=== PATIENT | female | born 1955 | race Caucasian/White ===

== ENCOUNTER 2019-02-01 11:50 | Inpatient (IN) | payer OTHER, SELFPAY ==
[2019-02-01 11:53] VITALS: BP 160/88; PULSE 62; RESP 18; TEMP 36.2; O2SAT 100
--- NOTE | 2019-02-01 12:06 | PC.NURSE ---
episode of headache resolved, aphasia resolved, tounge numbness resolved, now with right facial numbness, fast neuro exam negative. emotional with tears, skin warm dry pink, moving all ext.
--- NOTE | 2019-02-01 12:08 | DI.CT.S_ITS ---
PROCEDURE: CT HEAD/BRAIN WO CON INDICATIONS: Code stroke. Possible TPA TECHNIQUE: Noncontrast 4.5 mm thick angled axial sections acquired from the foramen magnum to the vertex, with coronal and sagittal reformats. For radiation dose reduction, the following was used: automated exposure control, adjustment of mA and/or kV according to patient size. COMPARISON: None. FINDINGS: Image quality: Excellent. CSF spaces: Basal cisterns are patent. No extra-axial fluid collections. The ventricles are symmetric in size and shape. Brain: Sub-5 mm areas of ill-defined hyperdensity present in the right frontal lobe, possibly sulcal although cannot exclude intraparenchymal. There is cerebral volume loss for age, with resultant ventricular and sulcal prominence. There are periventricular and deep white matter chronic small vessel ischemic changes. There is intracranial internal carotid artery atherosclerosis. Skull and face: Calvarium and visualized facial bones appear intact, without suspicious lesions. Sinuses: Visualized sinuses and mastoids are clear. IMPRESSION: Age-indeterminate sub-5 mm hyperdensities along the right frontal lobe potentially within sulcus versus intraparenchymal. Technically cannot exclude acute blood in the absence of prior studies. Elsewhere, no additional acute findings. Findings were personally telephoned and discussed in detail with Dr. Whalen in the emergency department at 1220 hours 02/01/19. Dictated by: Ralf Uribe M.D. on 02/01/2019 at 12:13 Approved by: Ralf Uribe M.D. on 02/01/2019 at 12:21
[2019-02-01 12:14] LABS: Add Manual Diff / Slide Review NO; Basophils Absolute Auto 100 /uL (0-100); Eosinophils Absolute Auto 100 /uL (0-450); Eosinophils Percent Auto 2.6 % (2-4); Hematocrit 37.6 % (36-46); Lymphocytes Absolute Auto 1900 /uL (1100-4500); Lymphocytes Percent Auto 35.1 % (25-40); Mean Corpuscular HGB Conc 34.4 % (30-36); Mean Corpuscular Hemoglobin 31.4 PG (26-34); Mean Corpuscular Volume 91.2 fL (80-100); Monocytes Absolute Auto 400 /uL (0-900); Monocytes Percent Auto 7.5 % (3-14); Neutrophils Absolute Auto 2900 /uL (1500-7000); Neutrophils Percent Auto 53.8 % (50-75); Platelet Count 240 X10^3/uL (150-400); Red Blood Cell Count 4.12 X10^6/uL (4.0-5.2); Red Cell Distribution Width 13.1 % (11.6-14.8); White Blood Cell Count 5.4 X10^3/uL (4.5-11.0)
[2019-02-01 12:21] LABS: Prothrombin Time 11.1 SECONDS (10.1-12.7)
[2019-02-01 12:23] LABS: PTT Partial Thromboplastin Tim 33 SECONDS (26.4-36.2)
--- NOTE | 2019-02-01 12:24 | ED_ITS ---
HPI - Neuro Symptoms/Deficit General Chief Complaint: Neuro Symptoms/Deficit Stated Complaint: thinks she is having stroke Time Seen by Provider: 02/01/19 11:58 Source: patient Mode of arrival: Ambulatory Limitations: no limitations History of Present Illness HPI Narrative: Patient is a 63-year-old female. Is on aspirin for treatment of paroxysmal atrial fibrillation. Here for evaluation which she thinks is pote ntially a stroke. She states that approximately 7:50 this morning she had a sudden onset of an episode where she states that she had problems speaking. She states that she knew that she was having problems speaking. Unsure exactly how long it lasted but she did not think it was a extended period of time. Then transitioned into her slurring her words. 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 She thought that she potentially could be having a stroke/TIA however took a shower prior to coming to her doctor's office who then told her to come to the emergency department. In this time she states that all of her speech issues have resolved. She states that EN route here to the emergency department she thought that she had numbness on the left side of her tongue. She states that has since resolved. She now states she is having some slight numbness to the right side of her face. Also woke up with a headache this morning. No trauma. Related Data Home Medications Medication Instructions Recorded Confirmed alprazolam 0.25 - 0.5 mg PO Q6H PRN 02/01/19 02/01/19 losartan 50 mg PO BID 02/01/19 02/01/19 magnesium oxide 500 mg PO QPM 02/01/19 02/01/19 metoprolol succinate 25 mg PO BID 02/01/19 02/01/19 omega-3 fatty acids-fish oil [Fish 1 cap PO DAILY 02/01/19 02/01/19 Oil] Allergies Allergy/AdvReac Type Severity Reaction Status Date / Time Sulfa (Sulfonamide Allergy Unknown Verified 02/01/19 15:08 Antibiotics) [SULFA (SULFONAMIDE ANTIBIOTICS)] Review of Systems Constitutional Constitutional: Denies fatigue, Denies fever(s) and Reports headache(s) Eyes Eyes: Denies blurry vision and Denies change in vision ENT Ears, Nose, Mouth, and Throat: Denies dizziness and Reports headache(s) Comments: Problem speaking Cardiovascular Cardiovascular: Denies chest pain, Denies palpitations and Denies dyspnea Respiratory Respiratory: Denies dyspnea Gastrointestinal Gastrointestinal: Denies abdominal pain, Denies nausea and Denies vomiting Genitourinary Genitourinary: Denies dysuria and Denies vaginal discharge Musculoskeletal Musculoskeletal: Denies myalgias and Denies arthralgias Integumentary/Breasts Skin/Breast: Denies lesions and Denies rash Neurologic Neurologic: Denies dizziness and Reports headache(s) Endocrine Endocrine: Denies fatigue and Denies palpitations Hematologic/Lymphatic Hematologic/Lymphatic: Denies easy bleeding and Denies easy bruising Patient History Medical History Paroxysmal atrial fibrillation (Acute) Social History marital status: household members: spouse lives independently: Yes Smoking Status: Never smoker alcohol intake: current Exam Initial Vital Signs Initial Vital Signs: Vital Signs Temperature 97.1 F L 02/01/19 11:53 Pulse Rate 62 02/01/19 11:53 Respiratory Rate 18 02/01/19 11:53 Blood Pressure 160/88 H 02/01/19 11:53 Pulse Oximetry 100 02/01/19 11:53 Const General: cooperative, comfortable and well developed Orientation: alert, awake and oriented x3 HENMT Head: normal to inspection and normocephalic Resp Effort & Inspection: normal respiratory effort Auscultation: clear to auscultation bilaterally Cardio Rate: regular rate Rhythm: regular rhythm Pulses: radial pulses present GI Inspection: non-distended Palpation: soft, No firm and No tender Skin Lesions: no lesions Rashes: no rashes Neuro General: alert, awake and oriented x3 Cranial Nerves: CN's II-XI intact bilaterally Cognition: normal cognition Speech: speech normal Gait: normal gait Motor: muscle tone normal throughout Sensory Exam: no sensory deficits noted Extrem General: normal to inspection and capillary refill normal Psych Appearance: grossly normal and well kempt Scores GCS [place] coma scale eye opening: Spontaneous [place] coma scale verbal response: Orientated [place] coma scale motor response: Obey commands Linda coma scale total score: 15 NIH Stroke Scale Level of Conciousness: Alert, keenly responsive Ask month/age: Answers both questions correctly. Open/close eyes, close hand: Performs both tasks correctly Best gaze horizontal: Normal Visual h[place]: No visual loss Facial palsy: Normal symetrical movement Left arm drift: No drift for full 10 sec Right arm drift: No drift for full 10 sec Left leg drift: No drift for full 10 sec Right leg drift: No drift for full 10 sec Limb ataxia: Absent Sensory on face/arms/legs: Mild to moderate sensory loss, can tell touch Best language: No aphasia, normal Dysarthria: Normal Extinction or inattention: No abnormality Total NIH Stroke scale score: 1 Course Orders Ordered: ED Orders 02/01/19 11:59 EKG-12 Lead Stat 02/01/19 12:03 Complete Blood Count AUTO DIFF Stat Comprehensive Metabolic Panel Stat Ethanol (ETOH) Stat Lipase Stat Partial Thromboplastin Time Stat Prothrombin Time INR Stat Troponin I Stat 02/01/19 12:08 CT head/brain wo con Stat 02/01/19 12:39 CT angio head and neck Stat 02/01/19 13:50 Urine Culture Stat Urine Microscopic Stat Discontinued Medications Acetaminophen (Tylenol) 650 mg PO NOW ONE Stop: 02/01/19 13:41 Last Admin: 02/01/19 13:55 Dose: 650 mg Documented by: MANNY Vital Signs Vital signs: Vital Signs - 8 hr 02/01/19 11:53 02/01/19 13:26 02/01/19 14:00 Temperature 97.1 F L Pulse Rate 62 47 L 55 L Respiratory Rate 18 16 17 Blood Pressure 160/88 H Blood Pressure [Left Arm] 122/79 135/79 Pulse Oximetry 100 99 100 MDM - Neuro Symptoms/Deficit Lab Data Attestation: I reviewed the patient's lab results. Result diagrams: 02/01/19 12:03 02/01/19 12:03 Labs: Lab Results 02/01/19 02/01/19 02/01/19 Range/Units 12:03 12:03 12:03 WBC 5.4 (4.5-11.0) X10^3/uL RBC 4.12 (4.0-5.2) X10^6/uL Hgb 13.0 (12.0-16.0) g/dL Hct 37.6 (36-46) % MCV 91.2 (80-100) fL MCH 31.4 (26-34) PG MCHC 34.4 (30-36) % RDW 13.1 (11.6-14.8) % Plt Count 240 (150-400) X10^3/uL Neut % (Auto) 53.8 (50-75) % Lymph % (Auto) 35.1 (25-40) % [place] % (Auto) 7.5 (3-14) % Eos % (Auto) 2.6 (2-4) % Baso % (Auto) 1.0 (0-2) % Neut # (Auto) 2900 (6323-1108) /uL Lymph # (Auto) 1900 (7229-0840) /uL [place] # (Auto) 400 (0-900) /uL Eos # (Auto) 100 (0-450) /uL Baso # (Auto) 100 (0-100) /uL PT 11.1 (10.1-12.7) SECONDS INR 1.0 (0.9-1.3) APTT 33 (26.4-36.2) SECONDS Sodium 135 L (137-145) mmol/L Potassium 4.4 (3.4-5.1) mmol/L Chloride 101 (98-107) mmol/L Carbon Dioxide 28 (22-32) mmol/L BUN 15 (7-17) mg/dL Creatinine 0.70 (0.52-1.04) mg/dL Estimated GFR > 60.0 (>60) mL/min BUN/Creatinine Ratio 21.4 (6-22) Glucose 96 (80-110) mg/dL Calcium 10.1 (8.4-10.2) mg/dL Total Bilirubin 0.5 (0.2-1.3) mg/dL AST 23 (14-36) IU/L ALT 14 (9-52) IU/L Alkaline Phosphatase 45 (38-126) U/L Troponin I < 0.012 (0.01-0.034) ng/mL Total Protein 7.5 (6.3-8.2) g/dL Albumin 4.5 (3.5-5.0) g/dL Globulin 3.0 (1.7-4.1) g/dL Albumin/Globulin Ratio 1.5 (1.0-2.8) Lipase 107 (23-300) U/L Urine RBC (0-5/HPF) Urine WBC (0-5/HPF) Ur Squamous Epith Cells (0-5/HPF) Urine Bacteria (None) Ur Culture Indicated? Ethyl Alcohol < 10 ( - 10) mg/dL 02/01/19 Range/Units 13:50 WBC (4.5-11.0) X10^3/uL RBC (4.0-5.2) X10^6/uL Hgb (12.0-16.0) g/dL Hct (36-46) % MCV (80-100) fL MCH (26-34) PG MCHC (30-36) % RDW (11.6-14.8) % Plt Count (150-400) X10^3/uL Neut % (Auto) (50-75) % Lymph % (Auto) (25-40) % [place] % (Auto) (3-14) % Eos % (Auto) (2-4) % Baso % (Auto) (0-2) % Neut # (Auto) (9751-5255) /uL Lymph # (Auto) (2917-2928) /uL [place] # (Auto) (0-900) /uL Eos # (Auto) (0-450) /uL Baso # (Auto) (0-100) /uL PT (10.1-12.7) SECONDS INR (0.9-1.3) APTT (26.4-36.2) SECONDS Sodium (137-145) mmol/L Potassium (3.4-5.1) mmol/L Chloride (98-107) mmol/L Carbon Dioxide (22-32) mmol/L BUN (7-17) mg/dL Creatinine (0.52-1.04) mg/dL Estimated GFR (>60) mL/min BUN/Creatinine Ratio (6-22) Glucose (80-110) mg/dL Calcium (8.4-10.2) mg/dL Total Bilirubin (0.2-1.3) mg/dL AST (14-36) IU/L ALT (9-52) IU/L Alkaline Phosphatase (38-126) U/L Troponin I (0.01-0.034) ng/mL Total Protein (6.3-8.2) g/dL Albumin (3.5-5.0) g/dL Globulin (1.7-4.1) g/dL Albumin/Globulin Ratio (1.0-2.8) Lipase (23-300) U/L Urine RBC 1-5/hpf (0-5/HPF) Urine WBC 5-10/hpf H (0-5/HPF) Ur Squamous Epith Cells None seen (0-5/HPF) Urine Bacteria Many (>30) H (None) Ur Culture Indicated? Specimen cultured Ethyl Alcohol ( - 10) mg/dL Urine Dip Bedside Urine Glucose Negative Bedside Urine Bilirubin - Negative Bedside Urine Ketone - Negative Urine Specific [place] 1.005 Bedside Urine Occult Blood - Negative Bedside Urine pH 7.5 Bedside Urine Protein - Negative Bedside Urine Urobilinogen - Negative Bedside Urine Nitrite + Positive Bedside Urine Leukocytes +/- [address] scan - head: Radiologist's impression: [address] [address] [address] Scan Report Signed Patient: Nelly Henry#: [id number] : 6Acct:[id number] Age/Sex: 63 / FDate of Service: 02/01/19 Loc: ED Accession Number: [id number] Procedure: CT head/brain wo con Ordering Provider: Meng Whalen D.O. PROCEDURE: CT HEAD/BRAIN WO CON INDICATIONS: Code stroke. Possible TPA TECHNIQUE: Noncontrast 4.5 mm thick angled axial sections acquired from the foramen magnum to the vertex, with coronal and sagittal reformats. For radiation dose reduction, the following was used: automated exposure control, adjustment of mA and/or kV according to patient size. COMPARISON: None. FINDINGS: Image quality: Excellent. CSF spaces: Basal cisterns are patent. No extra-axial fluid collections. The ventricles are symmetric in size and shape. Brain: Sub-5 mm areas of ill-defined hyperdensity present in the right frontal lobe, possibly sulcal although cannot exclude intraparenchymal. There is cerebral volume loss for age, with resultant ventricular and sulcal prominence. There are periventricular and deep white matter chronic small vessel ischemic changes. There is intracranial internal carotid artery atherosclerosis. Skull and face: Calvarium and visualized facial bones appear intact, without suspicious lesions. Sinuses: Visualized sinuses and mastoids are clear. IMPRESSION: Age-indeterminate sub-5 mm hyperdensities along the right frontal lobe potent ially within sulcus versus intraparenchymal. Technically cannot exclude acute blood in the absence of prior studies. Elsewhere, no additional acute findings. Findings were personally telephoned and discussed in detail with Dr. Whalen in the emergency department at 1220 hours 02/01/19. Dictated by: Ralf Uribe M.D. on 02/01/2019 at 12:13 Approved by: Ralf Uribe M.D. on 02/01/2019 at 12:21 CTA head/neck: Radiologist's impression: [address] [address] [address] Scan Report Signed Patient: Nelly Henry#: [id number] : 6Acct:[id number] Age/Sex: 63 / FDate of Service: 02/01/19 Loc: ED Accession Number: [id number] Procedure: CT angio head and neck Ordering Provider: Meng Whalen D.O. PROCEDURE: CT ANGIO HEAD AND NECK INDICATIONS: right facial numbness TECHNIQUE: Pre-contrast 4.5 mm thick sections acquired from the foramen magnum to the vertex. After the administration of intravenous contrast, 1 mm thick sections acquired from the aortic arch through the [place] of [place]. Post-contrast 4.5 mm thick sections then re-acquired from the foramen magnum to the vertex. 3-dimensional fnhonee-tlagmzrwr-kypnqsnhtp (MIP) and/or volume rendering reformats were acquired of the central intracranial vasculature and neck separately. COMPARISON: [facility], CT, CT HEAD/BRAIN WO CON, 02/01/2019, 11:58. FINDINGS: Image quality: Excellent. BRAIN: CSF spaces: Ventricles are normal in size and shape. Basal cisterns are patent. Cannot exclude minimal subarachnoid hemorrhage in the right frontal region. Brain: No midline shift. No intracranial bleeds or masses. Mejia-white matter interface appears intact. Skull and face: Calvarium and facial bones appear intact, without suspicious lesions. Orbits appear normal. Sinuses: Sinuses and mastoids are clear. HEAD CT ANGIOGRAPHY: Anterior circulation: Intracranial internal carotid arteries are normal in size and flow. The flow within the paired anterior cerebral arteries is normal and symmetric. The flow within the middle cerebral arteries is normal and symmetric. The anterior communicating artery is seen. No aneurysms are seen. Posterior circulation: Visualized portions of the vertebral arteries demonstrate normal caliber, and join to form a normal appearing basilar artery. Flow within the posterior cerebral arteries is normal and symmetric. No aneurysms are seen. NECK CT ANGIOGRAPHY: Carotid system: The great vessels demonstrate a bovine arch anatomy as they arise from the aortic arch. The origins of the common carotid arteries appear patent. The common carotid arteries demonstrate normal caliber and courses. The bifurcation regions are both widely patent. The internal carotid arteries demonstrate normal calibers and courses. Posterior circulation: The origins of the vertebral arteries both appear widely patent. The more superior extracranial portions of both vertebral arteries also demonstrate normal courses and calibers. They join to form a normal appearing basilar art josé miguel. Soft tissues: Visualized neck soft tissues demonstrate no suspicious abnormalities. Bones: No suspicious bony lesions. Visualized cervical spine appears normally aligned. IMPRESSION: 1. Cannot exclude minimal subarachnoid hemorrhage in the right frontal region. 2. Otherwise unremarkable CT head with and without contrast (noncontrast images are from the other study from earlier on the same date) 3. Unremarkable CT angiogram of the head. No evidence of significant stenosis, occlusion, aneurysm, or filling defect. 4. Unremarkable CTA of the neck. Widely patent internal carotid arteries. Comment: Findings were discussed with Dr. Whalen at the time of study dictation on 02/01/19 at 1302 hrs.. Any quantitative measurements of stenosis were performed using NASCET criteria. Dictated by: George Minor M.D. on 02/01/2019 at 12:51 Approved by: George Minor M.D. on 02/01/2019 at 13:02 ECG Data Attestation: I personally reviewed and interpreted this ECG as follows: Prior ECG tracings: not available for review Interpretation: Sinus bradycardia Ventricular rate of 53 Normal axis Normal QRS Normal QTC No ST T wave changes MDM Narrative Medical decision making narrative: Patient arrives to the emergency department greater than 4 hours after the onset of her symptoms. The symptoms have also improved/resolved. Her NIH score is 1 and that is for subjective tingling to the right side of her face. She no longer has any speech issues. The non con head CT was concerning for potential small subarachnoid hemorrhage. Radiology recommended a CTA which is performed which again showed these to frontal lobe lesions however the rest of the CTA was unremarkable. I did discuss the case with Neurosurgery at [facility] who evaluated the CT scan he stated that he did not think that these were subarachnoid bleeds. Patient does have a history of paroxysmal atrial fibrillation. She has only been on aspirin up to this point. Patient is outside the window for tPA +her symptoms have resolved/improved. I do suspect that she has had a TIA. Did discuss the case with Dr. Hassan who accept the patient under observation status for further workup. Discussed the diagnosis with the patient. She expressed understanding and agreement with plan. Discharge Plan Departure Patient Disposition: Admitted as Observation Clinical Impression: Transient cerebral ischemia Qualifiers: Transient cerebral ischemia type: unspecified Qualified Code(s): G45.9 - Transient cerebral ischemic attack, unspecified Discharge Date/Time: 02/01/19 14:45 Admit Date/Time: 02/01/19 14:27 Admit Provider: Bienvenido Hassan
[2019-02-01 12:25] LABS: Alanine Aminotransferase 14 IU/L (9-52); Albumin 4.5 g/dL (3.5-5.0); Albumin Globulin Ratio 1.5 (1.0-2.8); Alkaline Phosphatase 45 U/L (38-126); Aspartate Aminotransferase 23 IU/L (14-36); BUN Creatinine Ratio 21.4 (6-22); Bilirubin Total 0.5 mg/dL (0.2-1.3); Blood Urea Nitrogen 15 mg/dL (7-17); Calcium 10.1 mg/dL (8.4-10.2); Carbon Dioxide 28 mmol/L (22-32); Chloride 101 mmol/L (98-107); Estimated Glomerular Filt Rate > 60.0 mL/min (>60); Glucose 96 mg/dL (80-110); HEMOLYSIS < 15 (0-50); Lipase 107 U/L (23-300); Potassium 4.4 mmol/L (3.4-5.1); Sodium 135 mmol/L (137-145); Total Protein 7.5 g/dL (6.3-8.2)
[2019-02-01 12:36] LABS: Troponin I < 0.012 ng/mL (0.01-0.034)
--- NOTE | 2019-02-01 12:39 | DI.CT.S_ITS ---
PROCEDURE: CT ANGIO HEAD AND NECK INDICATIONS: right facial numbness TECHNIQUE: Pre-contrast 4.5 mm thick sections acquired from the foramen magnum to the vertex. After the administration of intravenous contrast, 1 mm thick sections acquired from the aortic arch through the [place] of [place]. Post-contrast 4.5 mm thick sections then re-acquired from the foramen magnum to the vertex. 3-dimensional oukzvht-zziuftrnu-mrlpmmiaoh (MIP) and/or volume rendering reformats were acquired of the central intracranial vasculature and neck separately. COMPARISON: [facility], CT, CT HEAD/BRAIN WO CON, 02/01/2019, 11:58. FINDINGS: Image quality: Excellent. BRAIN: CSF spaces: Ventricles are normal in size and shape. Basal cisterns are patent. Cannot exclude minimal subarachnoid hemorrhage in the right frontal region. Brain: No midline shift. No intracranial bleeds or masses. [place]-white matter interface appears intact. Skull and face: Calvarium and facial bones appear intact, without suspicious lesions. Orbits appear normal. Sinuses: Sinuses and mastoids are clear. HEAD CT ANGIOGRAPHY: Anterior circulation: Intracranial internal carotid arteries are normal in size and flow. The flow within the paired anterior cerebral arteries is normal and symmetric. The flow within the middle cerebral arteries is normal and symmetric. The anterior communicating artery is seen. No aneurysms are seen. Posterior circulation: Visualized portions of the vertebral arteries demonstrate normal caliber, and join to form a normal appearing basilar artery. Flow within the posterior cerebral arteries is normal and symmetric. No aneurysms are seen. NECK CT ANGIOGRAPHY: Carotid system: The great vessels demonstrate a bovine arch anatomy as they arise from the aortic arch. The origins of the common carotid arteries appear patent. The common carotid arteries demonstrate normal caliber and courses. The bifurcation regions are both widely patent. The internal carotid arteries demonstrate normal calibers and courses. Posterior circulation: The origins of the vertebral arteries both appear widely patent. The more superior extracranial portions of both vertebral arteries also demonstrate normal courses and calibers. They join to form a normal appearing basilar artery. Soft tissues: Visualized neck soft tissues demonstrate no suspicious abnormalities. Bones: No suspicious bony lesions. Visualized cervical spine appears normally aligned. IMPRESSION: 1. Cannot exclude minimal subarachnoid hemorrhage in the right frontal region. 2. Otherwise unremarkable CT head with and without contrast (noncontrast images are from the other study from earlier on the same date) 3. Unremarkable CT angiogram of the head. No evidence of significant stenosis, occlusion, aneurysm, or filling defect. 4. Unremarkable CTA of the neck. Widely patent internal carotid arteries. Comment: Findings were discussed with Dr. Whalen at the time of study dictation on 02/01/19 at 1302 hrs.. Any quantitative measurements of stenosis were performed using NASCET criteria. Dictated by: George Minor M.D. on 02/01/2019 at 12:51 Approved by: George Minor M.D. on 02/01/2019 at 13:02
[2019-02-01 13:03] LABS: Ethanol (ETOH) < 10 mg/dL
[2019-02-01 13:26] VITALS: BP 122/79; PULSE 47; RESP 16; O2SAT 99
--- NOTE | 2019-02-01 13:37 | PC.NURSE ---
pt reports woke up with headache, left side with neck pain, had episode of aphasia lasting 1 minutes, left side tounge numbness, resolved then right facial numbness. 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
[2019-02-01] MEDS: ACETAMINOPHEN 325 MG TABLET 650 MG PO (13:55)
[2019-02-01 14:00] VITALS: BP 135/79; PULSE 55; RESP 17; O2SAT 100
[2019-02-01 14:36] LABS: Bacteria Urine Many (>30); Culture Indicated Urine Specimen Cultured; RBC Urine 1-5/HPF (0-5/HPF); Squamous Epithelial Cell Urine None Seen (0-5/HPF); WBC Urine 5-10/HPF (0-5/HPF)
[2019-02-01 14:58] VITALS: BP 131/76; PULSE 47; RESP 15; TEMP 36.1; O2SAT 100
--- NOTE | 2019-02-01 14:59 | PC.NURSE ---
1445 Pt arrived from lED ,via stretcher. Pt able to stand and get into bed. Pt A&OX4. Pt up nitesh brp for ma void. denies pain at this time.
[2019-02-01 15:13] VITALS: BMI 23.8
--- NOTE | 2019-02-01 16:59 | DI.MRI.S_ITS ---
PROCEDURE: MR STROKE Pre- and post-contrast brain MRI, non-contrast brain MR angiogram, pre- and postcontrast neck MR angiogram INDICATIONS: TIA, R facial numbness, hx afib TECHNIQUE: Brain: Noncontrast axial T1 spin echo, axial T2 fast spin echo, sagittal and axial FLAIR, coronal T2 fast spin echo, axial gradient echo, axial diffusion and ADC through the brain. After the administration of contrast, axial 3D VIBE of the cranial vasculature and brain. Brain MRA: Non-contrast 3-D time of flight MR angiogram, with multiple wqqrgzs-tzsgsyszo-kpknrrqcma (MIP) reformats performed. Neck MRA: Axial and sagittal TruFISP through the neck. Coronal dynamic MR angiogram during administration of contrast in the arterial and venous phases, with 3-dimenstional yslcjgl-fkbnppokm-natgeylbrp (MIP) reformats constructed from subtraction images. COMPARISON: [facility], CT, CT ANGIO HEAD AND NECK, 02/01/2019, 12:24. [facility], CT, CT HEAD/BRAIN WO CON, 02/01/2019, 11:58. FINDINGS: Image quality: Excellent. BRAIN: CSF spaces: Ventricles are normal in size and shape. Basal cisterns are patent. No extra-axial fluid collections. Brain: No intracranial bleeds or mass effects. Mejia-white matter interface is normal. Diffusion weighted images show a small focus of restriction abnormality in the cortex of the right posterior parietal lobe (image 65, series 26) as well as a separate small focus of restriction abnormality involving the anterior, medial right temporal lobe (image 62, series 26). Brainstem appears normal. Normal intravascular flow voids are present. No abnormal intracranial enhancement. Skull and face: Calvarial marrow signal is normal. Orbits appear normal. Sinuses: Sinuses and mastoids are clear. BRAIN MR ANGIOGRAM: Anterior circulation: Intracranial internal carotid arteries are normal in size and enhancement. The flow within the paired anterior cerebral arteries is normal and symmetric. The flow within the middle cerebral arteries is normal and symmetric. The anterior communicating artery is seen. No stenoses, occlusions, or aneurysms. Posterior circulation: The visualized portions of the vertebral arteries demonstrate normal caliber, and join to form a normal appearing basilar artery. The flow within the posterior cerebral arteries is normal and symmetric. No stenoses, occlusions, or aneurysms. NECK MR ANGIOGRAM: Carotids: Great vessels demonstrate a conventional anatomy as they arise from the aortic arch. The origins of the common carotid arteries appear patent. The calibers and courses of both common carotid arteries are normal. The bifurcation regions appear normal bilaterally. The internal carotid arteries demonstrate normal course and caliber. Posterior circulation: The origins of the vertebral arteries appear patent. More superior portions of both vertebral arteries demonstrate normal course and caliber, and join to form a normal appearing basilar artery. Miscellaneous: Subclavian arteries appear patent. Pre-contrast images through the neck show no soft tissue abnormalities. IMPRESSION: BRAIN MRI: Small foci of acute cerebral infarction involving the posterior right parietal lobe as well as the anterior/medial right temporal lobe. Otherwise, negative MRI evaluation of the brain. Incidental note of age-related senescent changes. BRAIN MR ANGIOGRAM: Negative brain MRA. NECK MR ANGIOGRAM: Negative neck MRA. Findings were discussed with Dr. Lashanda Brown at 2200 hrs. Initial attempt to communicate findings at 2030hrs. Dictated by: Juan C Manzano M.D. on 02/01/2019 at 20:14 Approved by: Juan C Manzano M.D. on 02/01/2019 at 22:31
--- NOTE | 2019-02-01 17:00 | DI.ECHO.S_ITS ---
[facility]---------+ [facility] +---------+ : : [address] : : : : [id number] : : : : Phone: [phone]+ Echocardiogram Report + + :Name: MARCELINO OSBORNE Study Date: 02/02/2019 Height: 67 in : :[facility] Weight: 145 lb : : Gender: Female BSA: 1.8 m2 : :: 1955 Age: 63 yrs BP: 119/73 mmHg: :Reason For Study: TIA : : Performed By: Bernie Montilla : :Referring: GAGE PEREZ : + + Interpretation Summary The left ventricle is normal in size, wall thickness, and systolic function without any focal wall motion abnormalities with the ejection fraction visually estimated to be 65-70%. Diastolic function could not be accurately assessed due to contradictory data. The right ventricle is at the upper limits of normal in size but systolic function appears normal. The right ventricular systolic pressure is estimated to be at least 21 mmHg based on an estimated right atrial pressure of 3 mm Hg. The left atrium is moderately dilated while right atrial size is normal. The interatrial septum is intact with no evidence for an atrial septal defect by Doppler or injection of contrast. There is mild mitral regurgitation but no other significant valvular heart disease. The ascending aorta is mildly enlarged. Procedure: A two-dimensional transthoracic echocardiogram with color flow and Doppler was performed. The study quality was technically good. There is no prior echocardiogram noted for this patient. The patient was in normal sinus rhythm during the exam. Left Ventricle: The left ventricle is normal in size, wall thickness, and systolic function without any focal wall motion abnormalities. The ejection fraction is estimated to be 65-70%. Diastolic function could not be accurately assessed due to contradictory data. Right Ventricle: The right ventricle is at the upper limits of normal in size. The right ventricular systolic function is normal. Atria: The left atrium is moderately dilated. Right atrial size is normal. The interatrial septum is intact with no evidence for an atrial septal defect. There is no Doppler evidence for an interatrial shunt. Injection of contrast documented no interatrial shunt. Mitral Valve: There is mild mitral annular calcification. The mitral valve leaflets appear normal. There is no evidence of stenosis, fluttering, or prolapse. There is mild mitral regurgitation. Aortic Valve: The aortic valve is trileaflet. The aortic valve opens well. No aortic regurgitation is present. Tricuspid Valve: The tricuspid valve is normal in structure and function. There is a trace or physiologic amount of tricuspid regurgitation. The right ventricular systolic pressure is estimated to be at least 21 mmHg based on an estimated right atrial pressure of 3 mm Hg. Pulmonic Valve: The pulmonic valve is normal in structure and function. There is a trace or physiologic amount of pulmonic regurgitation. There is no other significant valvular heart disease. Great Vessels: The aortic root is normal size. The ascending aorta is mildly enlarged. The aortic arch is normal in size. The IVC is of normal diameter and collapses greater than 50% with a sniff. This suggests a low right atrial pressure of 3 mm Hg. Pericardium/ Pleura There is no pericardial effusion. There is no pleural effusion. MMode/2D Measurements & Calculations LVIDd: 4.6 cm Ao root diam: 3.3 cm LVIDs: 2.7 cm Aortic Jxn: 2.9 cm FS: 40.0 % asc Aorta Diam: 3.5 cm EPSS: 0.33 cm Ao Arch Diam (Prox Trans): 2.6 cm IVSd: 0.86 cm LVPWd: 0.90 cm LV garrett. diameter/BSA (cm/m^2): 2.6 LV sys. diameter/BSA (cm/m^2): 1.6 LA dimension: 4.4 cm RA long axis: 4.8 cm LA A2 area: 22.3 cm2 RA area: 16.3 cm2 LA A4 area: 22.0 cm2 RA vol: 47.4 ml LA length (vol): 5.2 cm RA : 26.9 ml/m2 LA vol: 80.1 ml IVC diam: 1.9 cm LA vol index: 45.4 ml/m2 RVDd major: 5.8 cm RVD1 (basal): 3.9 cm RVD2 (mid): 3.6 cm Doppler Measurements & Calculations Ao V2 max: 130.9 cm/sec MV E max renzo: 64.9 cm/sec Ao V2 mean: 84.1 cm/sec MV A max renzo: 49.4 cm/sec Ao max P.9 mmHg MV E/A: 1.3 Ao mean P.3 mmHg Med Peak E' Renzo: 4.4 cm/sec Ao V2 VTI: 29.9 cm E/E' med: 14.7 Lat Peak E' Renzo: 7.3 cm/sec E/E' lat: 8.9 E/e' average: 11.8 MV dec time: 0.25 sec MV P1/2t: 75.4 msec TR max renzo: 216.0 cm/sec MV P1/2t max renzo: 65.2 cm/sec TR max P.7 mmHg MVA(P1/2t): 2.9 cm2 PA V2 max: 84.7 cm/sec PA V2 mean: 63.3 cm/sec PA mean P.7 mmHg PA Accel Time: 0.17 sec Reading Physician:VIOLA
[2019-02-01] MEDS: METOPROLOL ER 25 MG TABLET PO (18:03)
[2019-02-01] MEDS: LOSARTAN 50 MG TABLET PO (18:04)
[2019-02-01 19:47] VITALS: BP 117/74; PULSE 52; RESP 18; TEMP 36.2; O2SAT 95
[2019-02-01 21:12] VITALS: PULSE 48; O2SAT 97
[2019-02-01] MEDS: MAGNESIUM OXIDE 400 MG TABLET PO (21:13)
--- NOTE | 2019-02-01 21:46 | P.HP_ITS ---
History of Present Illness History of Present Illness Date Patient Seen: 02/01/19 Time Patient Seen: 16:45 Chief complaint: thinks she is having stroke Narrative: Ms. Henry is a 63 year old female with PMH of paroxysmal AFib on aspirin only who presented to the ED this morning after an episode of difficulty speaking. Patient states that around 8 am this morning she had an episode where she had trouble speaking. She understood that she had troube speaking and her also had difficulty understanding her. 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 She then started slurring her words. She decided to take a shower prior to going to the doctor's office as her speech had improved but she had R sided facial numbness. She complained of a headache that has since resolved. She currently only has subjective decrease in sensation on the right side of her face. She denies recent head trauma, no falls, no fever, chills. She did have an episode of palpitations that resolved yesterday after taking an extra pill of metoprolol, which is usually how she treats her afib. She denies chest pain or shortess of breath currently. She endorsed a headache that started that morning. In the ED, patient's vitals were unremarkable (she was not in afib). Her CT and CTA showed a possible bleed however this was reviewed with neurosurgery by the ED who stated it was an over-read and that they were not concerned. She was admitted to medicine under observation status for a TIA, however this evening her MRI showed an acute infarct and she was changed to inpatient status. Patient History Medical History Paroxysmal atrial fibrillation (Acute) Family & Social History Social History: household members spouse Prior Living Arrangements House lives independently Yes Safety & Behavioral: Feels Safe in Current Yes Environment Been Physically Hurt or No Threatened By a Person Suicidal Ideation Description None Suicide Plan Description No Plan Tobacco & Substance use: Smoking Status Never smoker alcohol intake current alcohol intake frequency holiday/special occasion Substance Use Type does not use Meds Home Medications and Allergies Home Medications Medication Instructions Recorded Confirmed Type alprazolam 0.25 - 0.5 mg PO Q6H PRN 02/01/19 02/01/19 History losartan 50 mg PO BID 02/01/19 02/01/19 History magnesium oxide 500 mg PO QPM 02/01/19 02/01/19 History metoprolol succinate 25 mg PO BID 02/01/19 02/01/19 History omega-3 fatty acids-fish oil [Fish 1 cap PO DAILY 02/01/19 02/01/19 History Oil] Allergies Allergy/AdvReac Type Severity Reaction Status Date / Time Sulfa (Sulfonamide Allergy Unknown Verified 02/01/19 15:08 Antibiotics) [SULFA (SULFONAMIDE ANTIBIOTICS)] Review of Systems Review of Systems Narrative: All other systems reviewed with the patient and are negative unless otherwise stated. Exam Vital Signs (past 8 hours): - 02/01/19 14:00 02/01/19 14:58 02/01/19 19:47 Temperature 97.0 F L 97.1 F L Pulse Rate 55 L 47 L 52 L Respiratory Rate 17 15 18 Blood Pressure 131/76 117/74 Blood Pressure [Left Arm] 135/79 Pulse Oximetry 100 100 95 02/01/19 21:12 Temperature Pulse Rate 48 L Respiratory Rate Blood Pressure Blood Pressure [Left Arm] Pulse Oximetry 97 Oxygen Delivery Method Room Air Oxygen Flow Rate 0 Narrative Exam Narrative: GENERAL APPEARANCE: Well developed, well nourished, in no acute distress. SKIN: Inspection of the skin reveals no rashes, ulcerations or petechiae. HEENT: The sclerae were anicteric and conjunctivae were pink and moist. Extraocular movements were intact and pupils were equal, round with normal accommodation. External inspection of the ears and nose showed no scars, lesions, or masses. Lips, teeth, and gums showed normal mucosa. The oral mucosa, hard and soft palate, tongue and posterior pharynx were unremarkable. NECK: Supple and symmetric. There was no thyroid enlargement, and no tenderness, or masses were felt. CHEST: Normal AP diameter and normal contour without any kyphoscoliosis. LUNGS: Auscultation of the lungs revealed no wheezes, rhonchi, or rales. CARDIOVASCULAR: Bradycardia with regular rhythm without any murmurs, gallops, rubs. Peripheral pulses were 2+ and symmetric. ABDOMEN: Soft and nontender with normal bowel sounds. No ascites was noted. MUSCULOSKELETAL: There was no tenderness or effusions noted. Muscle strength and tone were normal. EXTREMITIES: No cyanosis, clubbing or edema. NEUROLOGIC: Alert and oriented x 3. Normal affect. Gait was normal. Strength is +5/5 in the Upper Extremities and Lower Extremities Bilaterally. Sensation to touch was normal except as noted on the right side of her face in all areas. NIH stroke scale 1 for R facial numbness / asymmetry. Objective Labs Result Diagrams: 02/01/19 12:03 02/01/19 12:03 Labs: Laboratory Results - last 24 hr 02/01/19 02/01/19 02/01/19 12:03 12:03 12:03 WBC 5.4 RBC 4.12 Hgb 13.0 Hct 37.6 MCV 91.2 MCH 31.4 MCHC 34.4 RDW 13.1 Plt Count 240 Neut % (Auto) 53.8 Lymph % (Auto) 35.1 [place] % (Auto) 7.5 Eos % (Auto) 2.6 Baso % (Auto) 1.0 Neut # (Auto) 2900 Lymph # (Auto) 1900 [place] # (Auto) 400 Eos # (Auto) 100 Baso # (Auto) 100 PT 11.1 INR 1.0 APTT 33 Sodium 135 L Potassium 4.4 Chloride 101 Carbon Dioxide 28 BUN 15 Creatinine 0.70 Estimated GFR > 60.0 BUN/Creatinine Ratio 21.4 Glucose 96 Calcium 10.1 Total Bilirubin 0.5 AST 23 ALT 14 Alkaline Phosphatase 45 Troponin I < 0.012 Total Protein 7.5 Albumin 4.5 Globulin 3.0 Albumin/Globulin Ratio 1.5 Lipase 107 Urine RBC Urine WBC Ur Squamous Epith Cells Urine Bacteria Ur Culture Indicated? Ethyl Alcohol < 10 02/01/19 13:50 WBC RBC Hgb Hct MCV MCH MCHC RDW Plt Count Neut % (Auto) Lymph % (Auto) [place] % (Auto) Eos % (Auto) Baso % (Auto) Neut # (Auto) Lymph # (Auto) [place] # (Auto) Eos # (Auto) Baso # (Auto) PT INR APTT Sodium Potassium Chloride Carbon Dioxide BUN Creatinine Estimated GFR BUN/Creatinine Ratio Glucose Calcium Total Bilirubin AST ALT Alkaline Phosphatase Troponin I Total Protein Albumin Globulin Albumin/Globulin Ratio Lipase Urine RBC 1-5/hpf Urine WBC 5-10/hpf H Ur Squamous Epith Cells None seen Urine Bacteria Many (>30) H Ur Culture Indicated? Specimen cultured Ethyl Alcohol Assessment & Plan Assessment & Plan narrative: Barbara Henry is a 63-year-old female past medical history of atrial fibrillation who was admitted with right-sided facial numbness that has been improving. Her MRI came back with an acute infarct, this is likely embolic in nature given her atrial fibrillation. 1. Acute embolic stroke, present - acute infarct seen on preliminary MRI read called this evening. NIHSS stroke score of 1, patient presented to ED outside of tPA window and has improving sensation in her face. 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 - continue Xarelto 20 mg nightly - TTE to assess for atrial clot - MRI stroke prelim read of acute stroke, final read pending. - no other deficits, no need for PT/OT evaluations. 2. atrial fibrillation, paroxysmal - patient currently in NSR but with history of this condition and MRI findings compatible with embolic disease. - continue home metoprolol - tele - CHADS2 - VASC of 4 with above events. Patient will start xarelto tonight. Code: Full Dispo: Admitted as inpatient given embolic stroke as noted by MRI findings. DVT: will start xarelto. Scores CHADS-VASc Congestive heart failure: no Hypertension: yes Age 75 years or older: no Diabetes mellitus: no Stroke, TIA, or TE: yes Vascular disease: no Age 65 to 74 years: no Sex category (female): Female CHADS-VASc Score: 4
[2019-02-01] MEDS: RIVAROXABAN 10 MG TABLET 20 MG PO (23:31)
[2019-02-02] VITALS (7 sets, daily range): BP systolic 113–121; BP diastolic 65–73; PULSE 48–55; RESP 15–18; TEMP 36.2; O2SAT 97–98
[2019-02-02 05:53] LABS: Add Manual Diff / Slide Review NO; Basophils Absolute Auto 0 /uL (0-100); Basophils Percent Auto 1.1 % (0-2); Eosinophils Absolute Auto 200 /uL (0-450); Eosinophils Percent Auto 4.2 % (2-4); Hematocrit 35.9 % (36-46); Hemoglobin 12.7 g/dL (12.0-16.0); Lymphocytes Absolute Auto 1800 /uL (1100-4500); Lymphocytes Percent Auto 47.6 % (25-40); Mean Corpuscular HGB Conc 35.3 % (30-36); Mean Corpuscular Hemoglobin 31.8 PG (26-34); Mean Corpuscular Volume 90.1 fL (80-100); Monocytes Absolute Auto 300 /uL (0-900); Monocytes Percent Auto 8.7 % (3-14); Neutrophils Absolute Auto 1500 /uL (1500-7000); Neutrophils Percent Auto 38.4 % (50-75); Platelet Count 197 X10^3/uL (150-400); Red Blood Cell Count 3.99 X10^6/uL (4.0-5.2); White Blood Cell Count 3.8 X10^3/uL (4.5-11.0)
[2019-02-02 06:01] LABS: Hemoglobin A1C% w Est Avg Glu 5.3 % (4.0-6.0)
[2019-02-02 06:04] LABS: Blood Urea Nitrogen 14 mg/dL (7-17); Carbon Dioxide 28 mmol/L (22-32); Chloride 106 mmol/L (98-107); Cholesterol 298 mg/dL (140-199); Estimated Glomerular Filt Rate > 60.0 mL/min (>60); Glucose 85 mg/dL (80-110); HDL Cholesterol 62 mg/dL (40-60); HEMOLYSIS < 15 (0-50); LDL Cholesterol Calculated 216 mg/dL (<100); Magnesium 2.2 mg/dL (1.6-2.3); Phosphorous 4.2 mg/dL (2.8-4.1); Potassium 4.7 mmol/L (3.4-5.1); Sodium 138 mmol/L (137-145); Triglycerides 99 mg/dL (35-150)
[2019-02-02 06:31] LABS: TSH w/ Reflex to FT4 8.22 uIU/mL (0.47-4.68)
[2019-02-02 07:00] LABS: Free T4, Direct Thyroxine 0.91 ng/dL (0.78-2.19)
[2019-02-02] MEDS: LOSARTAN 50 MG TABLET PO (09:10)
[2019-02-02] MEDS: FISH OIL 1,000 MG CAPSULE 1000 MG PO (09:10)
[2019-02-02] MEDS: METOPROLOL ER 25 MG TABLET PO (09:11)
[2019-02-02] MEDS: SODIUM CHLORIDE 0.9% FLUSH 10 ML IV (09:15)
--- NOTE | 2019-02-02 10:04 | SLP.IPNOTE ---
Spoke with patient and nurseMarie who both report patient is back to baseline and swallow/speech evaluation no longer needed. D/c ST orders.
--- NOTE | 2019-02-02 12:27 | PM.DS.1 ---
History of Present Illness History of Present Illness Date Patient Seen: 02/01/19 Chief complaint: thinks she is having stroke Narrative: Written by Dr. Hassan: Ms. Henry is a 63 year old female with PMH of paroxysmal AFib on aspirin only who presented to the ED this morning after an episode of difficulty speaking. Patient states that around 8 am this morning she had an episode where she had trouble speaking. She understood that she had troube speaking and her also had difficulty understanding her. 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 She then started slurring her words. She decided to take a shower prior to going to the doctor's office as her speech had improved but she had R sided facial numbness. She complained of a headache that has since resolved. She currently only has subjective decrease in sensation on the right side of her face. She denies recent head trauma, no falls, no fever, chills. She did have an episode of palpitations that resolved yesterday after taking an extra pill of metoprolol, which is usually how she treats her afib. She denies chest pain or shortess of breath currently. She endorsed a headache that started that morning. In the ED, patient's vitals were unremarkable (she was not in afib). Her CT and CTA showed a possible bleed however this was reviewed with neurosurgery by the ED who stated it was an over-read and that they were not concerned. She was admitted to medicine under observation status for a TIA, however this evening her MRI showed an acute infarct and she was changed to inpatient status. Discharge Providers Provider Date of admission: 02/01/19 22:07 Discharge Date: 02/02/19 Primary care physician: Luis Nagel MD Consults: 02/01/19 15:05 Consult to Speech Therapy Evaluate & Treat Comment: TIA Physician Instructions: Evaluate and treat Discharge provider: Lorena Ariza DO Summary Hospital Course Discharge Diagnosis: 1. Acute CVA's, present on admission. Resolved. 2. Paroxysmal atrial fibrillation, chronic, present on admission. Stable. Hospital Course: Barbara Henry is a 63-year-old female with a past medical history significant forparoxysmal atrial fibrillation who was admitted with right-sided facial numbness and found to have acute CVAs. 1. Acute CVA's, present on admission. Resolved. -Likely embolic/thrombotic given atrial fibrillation but could also be ischemic as unilateral and only in 2 vascular distributions. -NIHSS stroke score of 1. Patient presented to ED outside of tPA window and acute deficits completely resolved. -Continue to monitor closely on telemetry. -Allowed for permissive hypertension. -Patient tolerated a bedside swallow evaluation and did not require RESPIRATORY PHYSICIAN eval. No other deficits and no need for physical or occupational therapy evaluation and treatment. -MR stroke protocol demonstrated small foci of acute cerebral infarction involving the posterior right parietal lobe as well as the anterior/medial right temporal lobe. Incidental note of age-related senescent changes. Angiogram of head and neck did not demonstrate any significant stenoses or abnormality. -Continued Xarelto 20 mg daily. -Highly recommended statin therapy but patient has aversion and may consider low-dose high potency statin but would like to discuss this with her PCP. -Echocardiogram unremarkable and did not demonstrate inter atrial shunt or embolic source. 2. Paroxysmal atrial fibrillation, chronic, present on admission. Stable. -Patient currently in NSR but with history of this condition and MRI findings compatible with embolic disease. -Continued home metoprolol succinate 25 mg twice daily. -Continued to monitor closely on telemetry. -CHADS2 VASC score 4 with above events. Started and continued Xarelto 20 mg daily. Exam Vital Signs (past 8 hours): - 02/02/19 05:00 02/02/19 07:00 02/02/19 08:00 Temperature 97.2 F L 97.1 F L Pulse Rate 55 L 52 L Respiratory Rate 18 15 Blood Pressure 113/65 119/73 Pulse Oximetry 97 98 98 02/02/19 09:10 02/02/19 09:11 Temperature Pulse Rate 52 L 52 L Respiratory Rate Blood Pressure 119/73 119/73 Pulse Oximetry Oxygen Delivery Method Room Air Oxygen Flow Rate 0 Narrative Exam Narrative: General: Middle-aged female lying in bed and acute distress, well-developed, well-nourished, appropriately interactive. HEENT: Normocephalic, atraumatic. External ears without defect. Pupils equal, round, and reactive to light. Anicteric sclerae, moist conjunctivae, and no lid lag. Oropharynx free of erythema and cobble stoning with moist mucosa. No facial droop or dysarthria. Facial sensation normal bilaterally. Neck: Supple with full range of motion. No jugular venous distension. No bruits. No lymphadenopathy or thyromegaly. Cardiovascular: Regular rate and rhythm without murmurs, rubs, or gallops appreciated. Pulmonary: Clear to auscultation bilaterally without crackles, wheezes, or rhonchi. Normal respiratory effort with no use of accessory muscles. Abdomen: Soft, bowel sounds present, nontender, nondistended. No hepatosplenomegaly or masses appreciated. Extremities: No clubbing, cyanosis, or edema. Skin: Normal temperature, turgor, and texture; no rash, ulcers, or subcutaneous nodules appreciated. Neurological: Cranial nerves grossly intact. Normal muscle strength, tone, and bulk. Reflexes, coordination, and sensory function within normal limits. No known gait impairment. No focal neurological deficits. Psychiatric: Normal mood and affect. Alert and oriented to person, place, and time. Objective Labs Result Diagrams: 02/02/19 05:15 02/02/19 05:15 Labs: Laboratory Results - last 24 hr 02/01/19 02/01/19 02/02/19 12:03 13:50 05:15 WBC 3.8 L RBC 3.99 L Hgb 12.7 Hct 35.9 L MCV 90.1 MCH 31.8 MCHC 35.3 RDW 13.0 Plt Count 197 Neut % (Auto) 38.4 L Lymph % (Auto) 47.6 H [place] % (Auto) 8.7 Eos % (Auto) 4.2 H Baso % (Auto) 1.1 Neut # (Auto) 1500 Lymph # (Auto) 1800 [place] # (Auto) 300 Eos # (Auto) 200 Baso # (Auto) 0 Sodium Potassium Chloride Carbon Dioxide BUN Creatinine Estimated GFR BUN/Creatinine Ratio Glucose Hemoglobin A1c Calcium Phosphorus Magnesium Troponin I < 0.012 Triglycerides Cholesterol LDL Cholesterol, Calc HDL Cholesterol TSH Free T4 Urine RBC 1-5/hpf Urine WBC 5-10/hpf H Ur Squamous Epith Cells None seen Urine Bacteria Many (>30) H Ur Culture Indicated? Specimen cultured Ethyl Alcohol < 10 02/02/19 02/02/19 02/02/19 05:15 05:15 05:15 WBC RBC Hgb Hct MCV MCH MCHC RDW Plt Count Neut % (Auto) Lymph % (Auto) [place] % (Auto) Eos % (Auto) Baso % (Auto) Neut # (Auto) Lymph # (Auto) [place] # (Auto) Eos # (Auto) Baso # (Auto) Sodium 138 Potassium 4.7 Chloride 106 Carbon Dioxide 28 BUN 14 Creatinine 0.70 Estimated GFR > 60.0 BUN/Creatinine Ratio 20.0 Glucose 85 Hemoglobin A1c 5.3 Calcium 10.0 Phosphorus 4.2 H Magnesium 2.2 Troponin I Triglycerides 99 Cholesterol 298 H LDL Cholesterol, Calc 216 H HDL Cholesterol 62 H TSH 8.22 H Free T4 0.91 Urine RBC Urine WBC Ur Squamous Epith Cells Urine Bacteria Ur Culture Indicated? Ethyl Alcohol Discharge Plan Discharge Plan Patient Disposition: Home Discharge comment: You are being discharged home. Please follow-up with your primary care physician, Dr. Nagel, in the next 1 week regarding your hospitalization. You have had 3 small strokes which may be due to your atrial fibrillation but it is uncertain. You have been started on Xarelto 20 mg daily to prevent blood clots and stroke. I would consider a low-dose trial of rosuvastatin which is a high potency low side effect profile statin to prevent stroke from ischemic injury. Discharge Med Rec/Prescriptions Prescriptions: New Xarelto 10 mg Tablet 20 mg PO DAILYCC Qty: 30 RF: 0 Continued losartan 50 mg tablet 50 mg PO BID RF: 0 alprazolam 0.5 mg tablet 0.25 - 0.5 mg PO Q6H PRN (Reason: Anxiety) RF: 0 magnesium oxide 500 mg Tablet 500 mg PO QPM RF: 0 metoprolol succinate 25 mg tablet extended release 24 hr 25 mg PO BID RF: 0 omega-3 fatty acids-fish oil [Fish Oil] 300-1,000 mg Capsule 1 cap PO DAILY RF: 0 Follow up/Referrals: Luis Nagel MD [Primary Care Provider] - 1 Week Provider Discharge Instructions Diet: Diet as Tolerated, Low-fat, Low-sodium and Low-cholesterol Visit Report/Discharge Packet Instructions: The Mediterranean Diet and Good Health, DI for Stroke-Ischemic, Rivaroxaban (By mouth) Discharge Data Primary Care Provider: Luis Nagel Discharges patient from system. Discharge Date/Time: 02/02/19 14:00
--- NOTE | 2019-02-02 14:26 | PC.NURSE ---
Discharge Note: Pt with discharge education re TIA, stroke (symptoms, follow-up, diet, medications and home safety). Pt discussed treatment options at length with Dr. Ariza, including risks and benefits of anti-coagulation and statins. Pt A and O X 4, denies pain, NIH scale 0. Echo at bedside with bubble study. Pt discharged to personal vehicle without incident with telemetry and IV removed prior to discharge.
--- NOTE | 2019-02-02 15:59 | CM.DPNOTE ---
DCP/Brief Assessment: Reviewed chart. Patient is a 63yr old female admitted to [facility] under OBS status with TIA like symptoms. PCP listed is Luis Nagel. Primary payor is 1)[employer]. Attempted to meet with patient to discuss d/c planning and assess any d/c needs. 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 Per RN, patient completely I with all ADL's. Patient with no identified d/c planning needs. Home today. LINN Smith Discharge Planning/Care Management Advanced directive, confirm from FAMILY Start: 02/01/19 15:24 Freq: Q24H Status: Complete Protocol: Document 02/01/19 15:24 AGW (Rec: 02/01/19 18:21 AGW [id number]) Advance Directive, confirm on record Time 18:00 Person contacted pt given information Copy received No CM Discharge Assessment Start: 02/02/19 15:56 Freq: Status: Discharge Protocol: Document 02/02/19 15:56 KJS (Rec: 02/02/19 15:58 [id number]) Discharge Planning Assessment Assigned Strategic Sourcing Manager LINN Smith Contact Information Laureano Henry (spouse) [phone] Advance Directives? No History Provided By Medical Record Prior Living Arrangements House Household Members spouse Type of transporation used prior to Drives own vehicle admit Independent with ADL's Yes Is patient alert and oriented? Yes Caregiver for Another No Barriers to Discharge No Discharge Plan Home Transportation Arrangement Family Referrals Initiated None needed Review Status In Process Next Review Type Continued Stay Review
--- NOTE | 2019-02-08 10:22 | PC.NURSE ---
CALLED PATIENT PER DR. YANG'S REQUEST TO NOTIFY HER THAT HER UA CAME BACK POSITIVE FOR E. COLI. REVIEWED SIGNS AND SYMPTOMS OF UTI WITH PATIENT. SHE DENIES ALL SYMPTOMS. INSTRUCTED HER TO FOLLOW UP WITH HER PCP, DR. GRACE R/T TO UA RESULT. SHE STATES SHE HAS AN APPT W/ HIM ON TUESDAY, AND WILL DISCUSS SAME WITH MD PENA.
== END 2019-02-02 14:00 | disposition home or self-care (01) | DRG 66 ==
LOC: ED 12:35 → AC 14:28
PROVIDERS: Admitting Provider Internal Medicine; Emergency Provider Emergency Medicine; Family Provider Family Medicine; PCP Family Medicine; Visit Provider Internal Medicine
DX: I63.431 Cerebral infarction due to embolism of right posterior cerebral artery (principal); R47.81 Slurred speech; R20.0 Anesthesia of skin; I48.0 Paroxysmal atrial fibrillation
CPT/HCPCS: 36415; 70450; 70496; 70498; 70548; 70553; 80048; 80053; 80061; 80320; 81003; 81015; 83036; 83690; 83735; 84100; 84439; 84443; 84484; 85025; 85610; 85730; 87077; 87086; 87186; 93005; 93041; 93306; 99283; 99285; G0378; A9270; A9579; Q9967